=== PATIENT | male | born 1950 | race Caucasian/White ===

== ENCOUNTER → 2016-05-09 | Outpatient (CLI) | payer MEDICARE, OTHER ==
[2016-05-09 07:47] LABS: BASOPHILS % (AUTO) 0 % (0-2); EOSINOPHILS # (AUTO) 0.4 10^3uL; EOSINOPHILS % (AUTO) 3 % (0-4); LYMPHOCYTES # (AUTO) 3.7 X10^3; MEAN CORPUSCULAR VOLUME 89 FL (80-100); MEAN PLATELET VOLUME 9.6 FL (6.0-9.5); MONOCYTES # (AUTO) 0.9 X10^3; MONOCYTES % (AUTO) 8 % (3-11); NEUTROPHILS # (AUTO) 6.8 X10^3; NEUTROPHILS % (AUTO) 57 % (51-67); PLATELET COUNT 227 10^3uL (150-450); WHITE BLOOD COUNT 11.84 10^3uL (4.0-11.0)
[2016-05-09 07:51] LABS: MEAN CORPUSCULAR HEMOGLOBIN 31.5 PG (26.0-34.0); MEAN CORPUSCULAR HGB CONC 35.5 g/dL (31.0-37.0)
[2016-05-09 07:59] LABS: BILIRUBIN,URINE Negative (Negative); CLARITY,URINE Clear; COLOR,URINE Yellow; GLUCOSE, URINE (UA) Negative (Negative); LEUKOCYTE ESTERASE ,URINE Negative (Negative); UROBILINOGEN,URINE 0.2 mg/dL (0.2-1.0)
[2016-05-09 08:31] LABS: ALBUMIN 4.4 g/dL (3.4-5.0); ANION GAP 15.2 MEQ/L (3-15); TOTAL PROTEIN 7.4 g/dL (6.4-8.5)
== END ==
LOC: LAB 07:26
PROVIDERS: ATTEND Family Medicine
DX: I49.8 Other specified cardiac arrhythmias (principal); R06.00 Dyspnea, unspecified; R79.89 Other specified abnormal findings of blood chemistry; E78.2 Mixed hyperlipidemia; D50.8 Other iron deficiency anemias; N39.0 Urinary tract infection, site not specified; E13.65 Other specified diabetes mellitus with hyperglycemia; N41.9 Inflammatory disease of prostate, unspecified; E03.4 Atrophy of thyroid (acquired)
CPT/HCPCS: 36415; 71020; 80053; 80061; 81003; 83036; 84153; 84436; 84443; 85025; 93005